=== PATIENT | female | born 1955 | race Caucasian/White ===

== ENCOUNTER 2018-03-29 13:50 | Emergency (ER) | payer OTHER ==
[2018-03-29 14:27] LABS: PT 11.1 SEC (9.4-12.5)
[2018-03-29 14:30] LABS: ABSOLUTE BASOPHIL COUNT 0.1 /CUMM (0.0-0.2); ABSOLUTE EOSINOPHIL COUNT 0.1 /CUMM (0.0-0.7); ABSOLUTE LYMPH COUNT 1.4 /CUMM (1.2-3.4); ABSOLUTE MONOCYTE COUNT 0.5 /CUMM (0.10-0.60); BASOPHIL % 1.4 % (0.0-2.0); GRANULOCYTE % 64.8 % (42.2-75.2); HEMATOCRIT 36.1 % (37-47); MEAN CORPUSCULAR HGB 30.6 PG (27.0-31.0); MEAN CORPUSCULAR VOLUME 92.6 FL (81.0-99.0); MEAN PLATELET VOLUME 7.8 FL (7.4-10.4); PLATELET COUNT 351 /CUMM (130-400); RBC DISTRIBUTION WIDTH 14.1 % (11.5-14.5); WHITE BLOOD CELL COUNT 6.2 /CUMM (4.8-10.8)
--- NOTE | 2018-03-29 15:17 | RADIOLOGY REPORT ---
EXAMINATION: XR CHEST CLINICAL INFORMATION: Chest pain. COMPARISON: None TECHNIQUE: 2 views of the chest were obtained. FINDINGS: The lungs are well-inflated and clear. Trachea is midline in position. No evidence of interstitial disease, focal consolidation, mass, pneumothorax or pleural effusion. The cardiomediastinal silhouette and pulmonary oscar have normal size and contour. Mild levocurvature of the moderately degenerated thoracic spine. 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 The examined upper abdomen is unremarkable. IMPRESSION: No acute cardiopulmonary findings.
--- NOTE | 2018-03-29 17:18 | ED CARDIAC/CP/PALPITATIONS ---
History of Present Illness General Chief Complaint: Chest Pain Stated Complaint: PT STATES "I HAD CP ALL WEEKEND" Source: patient Exam Limitations: no limitations Allergies Coded Allergies: No Known Allergies (03/29/18) Reconcile Medications Omeprazole 40 MG CAPSULE.DR Valdez CAP PO DAILY ACID REFLUX Triage Note: PER PT CO CP "ALL WEEKEND ""FEELS LIKE HEART IS CONTRACTINA ASSOC WITH SOB" PAIN 07/01 Triage Nurses Notes Reviewed? yes Onset: Abrupt Duration: day(s):, intermittent Timing: recent history Quality/Severity: moderate, severe, pressure, sharp Location: central Radiation: no radiation Activities at Onset: none HPI: 62-year-old female comes into the emergency room with complaints of central chest pain that has been going on for the past 3 years intermittently but got worse over this past weekend. She reports that since Wednesday she was getting sharp pains in the center of her chest with some associated burning that would last for seconds and then go away. Symptoms would occur every few hours. She reports that the symptoms were persisting at work today and he told her to come in to get evaluated. She denies any vomiting. She denies any current shortness of breath. Denies any fever chills cough. She also admits that she's had some chronic low back issues for years and is requesting an x-ray of her lower back. She is trying to follow-up with orthopedic doctor. (Erasmo Varela) Vital Signs & Intake/Output Vital Signs & Intake/Output Vital Signs Date Time Temp Pulse Resp B/P B/P Pulse O2 O2 Flow FiO2 Mean Ox Delivery Rate 03/29 1955 97.8 74 18 156/74 98 Room Air 03/29 1417 97.1 93 18 132/83 99 (Olimpia CASANOVA,Derrick Alvarez) Past History Travel History Traveled to [place] past 21 day No Medical History Any Pertinent Medical History? see below for history Neurological: NONE EENT: NONE Cardiovascular: hypertension Respiratory: NONE Gastrointestinal: NONE Hepatic: NONE Renal: NONE Musculoskeletal: NONE Psychiatric: anxiety Endocrine: NONE Surgical History Surgical History: non-contributory Psychosocial History What is your primary language French Tobacco Use: Never used Family History Hx Contributory? No (Erasmo Varela) Review of Systems Review of Systems Constitutional: Reports: no symptoms. EENTM: Reports: no symptoms. Respiratory: Reports: no symptoms. Cardiovascular: Reports: see HPI. GI: Reports: see HPI. Genitourinary: Reports: no symptoms. Musculoskeletal: Reports: no symptoms. Skin: Reports: no symptoms. Neurological/Psychological: Reports: no symptoms. Hematologic/Endocrine: Reports: no symptoms. Immunologic/Allergic: Reports: no symptoms. All Other Systems: Reviewed and Negative (Erasmo Varela) Physical Exam Physical Exam General Appearance: well developed/nourished, alert, awake, mild distress Head: atraumatic, normal appearance Eyes: Bilateral: normal appearance, EOMI. Ears, Nose, Throat: normal ENT inspection, hearing grossly normal Neck: normal inspection Respiratory: normal breath sounds, no respiratory distress Cardiovascular: regular rate/rhythm Back: normal range of motion Extremities: normal inspection Neurologic/Psych: awake, alert, oriented x 3, normal gait Skin: intact, normal color Core Measures ACS in differential dx? No CVA/TIA Diagnosis No Sepsis Present: No Sepsis Focused Exam Completed? No (Erasmo Varela) Progress Differential Diagnosis: AMI, musculoskeletal pain, pancreatitis, pericarditis, pneumonia, pneumothorax, pulmonary embolism, PUD/GERD, unstable angina Diagnostic Imaging: Viewed by Me: Radiology Read. Discussed w/RAD: Radiology Read. Radiology Impression: PATIENT: MELVI SANTANA PRESENT AGE: 62 PATIENT ACCOUNT NO: [id number] : 54 LOCATION: [facility] ORDERING PHYSICIAN: Erasmo VICK SERVICE DATE: 03/29/18 EXAM TYPE: RAD - XRY-LUMBOSACRAL SPINE 4 VIEWS EXAMINATION: XR LUMBOSACRAL SPINE CLINICAL INFORMATION: Low back pain. COMPARISON: None TECHNIQUE: 4 views of the lumbosacral spine were obtained on 5 images. FINDINGS: Grade 1 anterolisthesis of L4 on L5 is seen. Alignment of the lumbar spine otherwise unremarkable. No acute fracture or dislocation is noted. Disc space height is well-maintained at all levels. Mild vertebral spondylosis seen in the mid and lower lumbar spine. Moderate facet arthropathy seen in the mid and lower lumbar spine. Mild degenerative change in the left hip joint noted. Sacroiliac joints bilaterally are intact with minimal degenerative change along the inferior aspects. Pubic symphysis is unremarkable. Enthesopathic changes seen at the iliac spines. Fair amount of stool is seen in the right and transverse colon. IMPRESSION: 1. Grade 1 anterolisthesis of L4 on L5, possibly due to ligamentous laxity. Clinical correlation requested. 2. No acute fracture or dislocation. 3. Mild vertebral spondylosis and moderate facet arthropathy in the mid and lower lumbar spine. DICTATED BY: Radha Harris MD DATE/TIME DICTATED:03/29/181903 MARINE FIREMAN:CARLOS ALBERTO DATE/TIME TRANSCRIBED:03/29/181903 CONFIDENTIAL, DO NOT COPY WITHOUT APPROPRIATE AUTHORIZATION. <Electronically signed in Other Vendor System> SIGNED BY: Radha Harris MD 03/29/181908, PATIENT: MELVI SANTANA PRESENT AGE: 62 PATIENT ACCOUNT NO: [id number] : 54 LOCATION: [facility] ORDERING PHYSICIAN: Derrick Gardiner DO SERVICE DATE: 03/29/18 EXAM TYPE: RAD - XRY-CHEST XRAY, TWO VIEWS EXAMINATION: XR CHEST CLINICAL INFORMATION: Chest pain. COMPARISON: None TECHNIQUE: 2 views of the chest were obtained. FINDINGS: The lungs are well- inflated and clear. Trachea is midline in position. No evidence of interstitial disease, focal consolidation, mass, pneumothorax or pleural effusion. The cardiomediastinal silhouette and pulmonary oscar have normal size and contour. Mild levocurvature of the moderately degenerated thoracic spine. 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 The examined upper abdomen is unremarkable. IMPRESSION: No acute cardiopulmonary findings. DICTATED BY: Aditya Lyon MD DATE/TIME DICTATED:03/29/181512 MARINE FIREMAN:CARLOS ALBERTO DATE/TIME TRANSCRIBED:03/29/181512 CONFIDENTIAL, DO NOT COPY WITHOUT APPROPRIATE AUTHORIZATION. <Electronically signed in Other Vendor System> SIGNED BY: Aditya Lyon MD 03/29/181516 Initial ED EKG: normal sinus rhythm, rate (94), nonspecific ST T wave chg Repeat EKG: unchanged (Erasmo Varela) Plan of Care: Orders Procedure Date/time Status TROPONIN LEVEL 03/29 181 Complete EKG 03/29 181 Active Add-on Test (ER Only) 03/29 1728 Active D-DIMER 03/29 1408 Complete TROPONIN LEVEL 03/29 135 Complete PROTHROMBIN TIME 03/29 135 Complete LIPASE 03/29 1357 Complete COMPREHENSIVE METABOLIC PANEL 03/29 1357 Complete CBC WITHOUT DIFFERENTIAL 03/29 1357 Complete AMYLASE 03/29 1357 Complete EKG 03/29 135 Active Laboratory Tests 03/29/18 1951: Troponin I < 0.01 03/29/18 1408: Anion Gap 10, Estimated GFR > 60, BUN/Creatinine Ratio 28.6 H, Glucose 89, Calcium 8.9, Total Bilirubin 0.4, AST 12 L, ALT 18, Alkaline Phosphatase 56, Troponin I < 0.01, Total Protein 6.6, Albumin 3.9, Globulin 2.7, Albumin/ Globulin Ratio 1.4, Amylase 54, Lipase 72, PT 11.1, INR 1.02, D-Dimer High Sensitivty < 200, CBC w Diff NO MAN DIFF REQ, RBC 3.90 L, MCV 92.6, MCH 30.6, MCHC 33.0, RDW 14.1, MPV 7.8, Gran % 64.8, Lymphocytes % 23.2, Monocytes % 8.6, Eosinophils % 2.0, Basophils % 1.4, Absolute Granulocytes 4.0, Absolute Lymphocytes 1.4, Absolute Monocytes 0.5, Absolute Eosinophils 0.1, Absolute Basophils 0.1 (Olimpia CASANOVA,Derrick Alvarez) Departure Departure Disposition: HOME OR SELF CARE Condition: Stable Clinical Impression Primary Impression: Atypical chest pain Secondary Impressions: Arthritis, low back Referrals: Neel CASANOVA,Gordo Garcia (PCP/Family) Additional Instructions: Take omeprazole as prescribed. Follow-up with your primary care doctor. Return if any other concerns worsening symptoms. Please go over all results of today's visit with your primary care doctor. Contact your primary care doctor to let them know you were here in the emergency room. There may be nonspecific findings which may not be related to your visit today here in the emergency room but may require further evaluation and chronic monitoring by your primary care doctor. If you had a laceration today the chance of foreign body always remains. You should follow-up with your primary care doctor for recheck in 3-5 days for a wound check. If you had an x-ray done there is a chance that a fracture could have been missed on initial read and you should follow-up with your primary care doctor for repeat x-rays if symptoms persist. If your blood pressure was elevated here in the emergency room please have rechecked by [facility] primary care doctor within the next 48. If you were prescribed a narcotic here in the emergency room or any type of controlled substances you're not allowed to drive while taking this medication or operate any type of heavy machinery. Narcotics can make you feel lightheaded dizziness nausea and can cause constipation. You may need to case picker a stool softener. Thank you for choosing [facility] emergency room. Please return to the emergency room immediately if you have any other concerns worsening of symptoms. Departure Forms: Customer Survey General Discharge Information Prescriptions: Current Visit Scripts Omeprazole 1 CAP PO DAILY #30 CAP Comments 03/29/2018 9:16:51 PM Patient clinically looks well. Patient is in no apparent distress. Patient is nontoxic-appearing. 2 normal troponins. Patient is in no distress. Walking around room. Asymptomatic here in the emergency room. If she has been an acute on chronic issue. Started on PPI for possible peptic ulcer. Low suspicion for acute cardiac event. Patient needs close follow-up with her PCP. Return if any recurrent pain or any other concerns. Understands and agrees with plan of care. Case was discussed with Dr. Doan. (Erasmo Varela) PA/CONSTRUCTION DIRECTOR Co-Sign Statement Statement: ED Attending supervision documentation- [] I saw and evaluated the patient. I have also reviewed all the pertinent lab results and diagnostic results. I agree with the findings and the plan of care as documented in the PA's/CONSTRUCTION DIRECTOR's documentation. [X] I have reviewed the ED Record and agree with the PA's/CONSTRUCTION DIRECTOR's documentation. [] Additions or exceptions (if any) to the PAs/CONSTRUCTION DIRECTOR's note and plan are summarized below: [] (Olimpia CASANOVA,Derrick Alvarez) Critical Care Note Critical Care Note Critical Care Time: non-applicable (Erasmo Varela)
--- NOTE | 2018-03-29 19:09 | RADIOLOGY REPORT ---
EXAMINATION: XR LUMBOSACRAL SPINE CLINICAL INFORMATION: Low back pain. COMPARISON: None TECHNIQUE: 4 views of the lumbosacral spine were obtained on 5 images. FINDINGS: Grade 1 anterolisthesis of L4 on L5 is seen. Alignment of the lumbar spine otherwise unremarkable. No acute fracture or dislocation is noted. Disc space height is well-maintained at all levels. Mild vertebral spondylosis seen in the mid and lower lumbar spine. Moderate facet arthropathy seen in the mid and lower lumbar spine. Mild degenerative change in the left hip joint noted. Sacroiliac joints bilaterally are intact with minimal degenerative change along the inferior aspects. Pubic symphysis is unremarkable. Enthesopathic changes seen at the iliac spines. Fair amount of stool is seen in the right and transverse colon. IMPRESSION: 1. Grade 1 anterolisthesis of L4 on L5, possibly due to ligamentous laxity. Clinical correlation requested. 2. No acute fracture or dislocation. 3. Mild vertebral spondylosis and moderate facet arthropathy in the mid and lower lumbar spine.
[2018-03-29] MEDS ORDERED: OMEPRAZOLE40 M1 PO (21:10)
[2018-03-29 21:19] VITALS: BP 148/76
== END 2018-03-29 21:20 ==
LOC: ERH 13:50
PROVIDERS: Emergency Medicine
DX: R07.89 Other chest pain (principal); M54.5 Low back pain; M19.90 Unspecified osteoarthritis, unspecified site; I10 Essential (primary) hypertension
CPT/HCPCS: 71046; 72110; 93005; 93010